=== PATIENT | female | born 1995 | race American Indian/Alaskan Native ===

== ENCOUNTER 2020-07-21 15:27 | Day surgery (SDC) | payer OTHER, MEDICAID ==
[2020-07-21] MEDS ORDERED: SODIUM CHLORIDE 0.9% 1000 ML 1,000 ML IV ONE (17:18)
--- NOTE | 2020-07-21 17:19 | Event Note ---
ED Screening Note Date of service: 07/21/20 Time: 17:17 ED Screening Note: This is a 25-year-old female presents to ED with vaginal bleeding status post medical on Monday of last week. Patient states that vaginal bleeding got worse 2 days ago. This initial assessment/diagnostic orders/clinical plan/treatment(s) is/are subject to change based on patients health status, clinical progression and re- assessment by fellow clinical providers in the ED. Further treatment and workup at subsequent clinical providers discretion. Patient/guardian urged not to elope from the ED as their condition may be serious if not clinically assessed and managed. Initial orders include: CBC, CMP, type and screen test, 1 L of fluids, residential monitor
--- NOTE | 2020-07-21 17:29 | Emergency Department Report ---
ED General Adult HPI - General Chief complaint: Vaginal Bleeding Stated complaint: BLOOD LOSS PUI?: No Time Seen by Provider: 07/21/20 17:28 Source: patient, RN notes reviewed Mode of arrival: Ambulatory Limitations: No Limitations - History of Present Illness Initial comments: The patient was evaluated in the emergency department for symptoms described in the history of present illness. He/she was evaluated in the context of the global COVID-19 pandemic, which necessitated consideration that the patient might be at risk for infection with the virus that causes COVID-19. Institutional protocols and algorithms that pertain to the evaluation of patients at risk for COVID-19 are in a state of rapid change based on informa tion released by regulatory bodies including the CDC and federal and state organizations. These policies and algorithms were followed during the patient's care in the emergency department. Please note that these policies, procedures and recommendations changed on a rapid basis. During the history and physical examination, I am chaperoned by nurse Arline Alcaraz The patient is a 25-year-old female. She is not known to me previously. She is 3, para 0, status post 1 surgical termination of , recently status post 1 medical . Patient reports that she was approximately 8 weeks with twins, confirmed via outpatient ultrasound, when she took "an pill" last week, approximately on Monday. She reports intermittent bleeding from Monday to , then reports bleeding stopped on Monday, then reports increasing bleeding on Monday. She reports bleeding more than 10 pads per day. She reports shortness of breath, dizziness, lightheadedness, with no physical pain, positive chills, and positive feeling "very pale." She reports that she went to her outpatient prepared foods team leader, who performed laboratory studies, and indicated that her hemoglobin went from 12-5, and she was thus referred to the emergency room. She reports her outpatient [employer] is the following: [facility] Negative for fever, negative for loss of taste, loss of smell, negative for chest pain, positive shortness of breath, no abdominal pain, no dysuria, no hematemesis or bright red blood per rectum. She has no scientology objections to receiving a blood transfusion, if necessary. -: Gradual, days(s) Consistency: constant Improves with: none Worsens with: none - Related Data Allergies Allergy/AdvReac Type Severity Reaction Status Date / Time No Known Allergies Allergy Unverified 07/21/20 17:12 ED Review of Systems ROS: Stated complaint: BLOOD LOSS Other details as noted in HPI Constitutional: chills, malaise, weakness. denies: fever Eyes: denies: eye discharge ENT: denies: epistaxis Respiratory: shortness of breath Cardiovascular: dyspnea on exertion. denies: chest pain Gastrointestinal: denies: abdominal pain, nausea, vomiting, hematemesis, melena, hematochezia Genitourinary: abnormal menses. denies: dysuria Musculoskeletal: denies: back pain Neurological: weakness Hematological/Lymphatic: denies: easy bleeding ED Physical Exam - General Limitations: No Limitations General appearance: alert, anxious - Head Head exam: Present: atraumatic, normocephalic - Eye Eye exam: Present: PERRL, EOMI, other (Bilateral conjunctiva are pale). Absent: nystagmus - ENT ENT exam: Present: normal exam, normal orophraynx, mucous membranes moist, normal external ear exam - Neck Neck exam: Present: normal inspection, full ROM. Absent: tenderness, meningismus - Respiratory Respiratory exam: Present: normal lung sounds bilaterally. Absent: respiratory distress, wheezes, rales, rhonchi, stridor, decreased breath sounds - Cardiovascular Cardiovascular Exam: Present: normal rhythm, tachycardia, normal heart sounds. Absent: irregular rhythm, systolic murmur, diastolic murmur, rubs, gallop - GI/Abdominal GI/Abdominal exam: Present: soft. Absent: distended, tenderness, guarding, rebound, rigid, pulsatile mass - Extremities Exam Extremities exam: Present: normal inspection, full ROM, other (2+ pulses noted in the bilateral upper and lower extremities. There is no palpable cord. ne gative Homans sign. Muscular compartments are soft. The pelvis is stable.). Absent: pedal edema, calf tenderness - Back Exam Back exam: Present: normal inspection, full ROM. Absent: tenderness, CVA tenderness (R), CVA tenderness (L), paraspinal tenderness, vertebral tenderness - Neurological Exam Neurological exam: Present: alert, normal gait, other (No facial droop. Tongue midline. Extraocular movements intact bilaterally. Facial sensation intact to light touch in V1, V2, V3 distribution bilaterally. 5 and a 5 strength in 4 extremities. Sensation intact to light touch in 4 extremities.). Absent: motor sensory deficit - Psychiatric Psychiatric exam: Present: anxious - Skin Skin exam: Present: warm, dry, intact, normal color. Absent: rash ED Course Vital Signs 07/21/20 15:33 Temperature 98.4 F Pulse Rate 159 H Respiratory 18 Rate Blood Pressure 112/56 O2 Sat by Pulse 100 Oximetry - Reevaluation(s) Reevaluation #1: 07/21/20 17:44 Differential diagnosis, including but not limited to: Symptomatic anemia, retained products of conception, hemorrhage Assessment and plan: 25-year-old female, status post ingestion of medical pill approximately 1 week ago, now with reported profuse bleeding, who appears very pale, quite tachycardic, with pale conjunctiva, but hemodynamically stable, and mentating appropriately. Place patient on cardiac cath lab technologist, obtain 2 large-bore IVs, start IV fluid resuscitation, obtain appropriate laboratory studies, transfuse 1 unit packed red blood cells to start, obtain stat obstetrics ultrasound, and then discussed with gynecology on-call. Have discussed this plan of care with the patient, who verbalized understanding, and is amenable to this plan of care. Reevaluation #2: 07/21/20 19:20 Patient feels improved. Heart rate 115 bpm. Ultrasound suggests retained products of conception. Obstetrics on-call was paged. - Consultations Consultation #1: 07/21/20 19:43 Discussed history, physical, pertinent laboratory studies and imaging studies with obstetrics on-call, Dr. Saint Sharp. She accepts the patient to her service, advises that patient will likely require operative intervention. Patient has not eaten since 1:00 PM. I have updated the patient on this plan of care, and she is amenable. Currently, heart rate 101 bpm, blood pressure 115/70. ED Medical Decision Making - Lab Data Result diagrams: 07/21/20 17:21 07/21/20 17:21 Vital Signs 07/21/20 15:33 Temperature 98.4 F Pulse Rate 159 H Respiratory 18 Rate Blood Pressure 112/56 O2 Sat by Pulse 100 Oximetry - Radiology Data Radiology results: report reviewed, image reviewed ULTRASOUND OBSTETRIC REASON FOR EXAM: s/p bill, now with profuse bleeding TECHNIQUE: Transabdominal and transvaginal ultrasound was performed to evaluate a first trimester . COMPARISON: None available. FINDINGS: FINDINGS: No IUP is visualized. MATERNAL FINDINGS: The uterus measures 9.3 x 5.7 x 7.5 cm. The endometrial stripe is heterogeneous and ma rkedly thickened, measuring 2.7 cm. There is significant Doppler flow in the region of the endometrial stripe. The right ovary measures 3.0 x 1.9 x 2.1 cm and demonstrates a 2.1 cm cystic structure, most consistent with a corpus luteum cyst. The left ovary measures 2.2 x 1.3 x 1.6 cm and demonstrates a normal sonographic appearance. Cul-de-sac: There is no free fluid. IMPRESSION: 1. No IUP visualized. 2. Heterogeneous and thickened endometrium with significant associated Doppler flow in the region of the endometrial cavity. Findings are concerning for incomplete with retained products of conception. Signer Name: Lam Velasquez MD Signed: 07/21/2020 6:57 PM Workstation Name: [id number] Critical Care Time: Yes Critical care time in (mins) excluding proc time.: 35 Critical care attestation.: If time is entered above; I have spent that time in minutes in the direct care of this critically ill patient, excluding procedure time. ED Disposition Clinical Impression: Anemia, Vaginal bleeding, Hypokalemia, Retained products of conception Disposition: DC-09 OP ADMIT IP TO THIS HOSP Is pt being admited?: Yes Does the pt Need Aspirin: No Condition: Serious Referrals: PRIMARY CARE, [Primary Care Provider] - 3-5 Days
[2020-07-21] MEDS ORDERED: SODIUM CHLORIDE 0.9% 500 ML 500 ML IV ONE (17:39)
[2020-07-21] MEDS ORDERED: LACTATED RINGERS 2,000 ML IV ONE (17:39)
[2020-07-21 17:57] LABS: Basophils # (Auto) 0.1 K/mm3 (0.0-0.1); Basophils % (Auto) 0.6 % (0.0-1.8); Eosinophils % (Auto) 0.2 % (0.0-4.3); Lymphocytes % (Auto) 24.1 % (13.4-35.0); Mean Corpuscular HGB Conc 33 % (30-34); Mean Corpuscular Volume 89 fl (79-97); Monocytes % (Auto) 5.9 % (0.0-7.3); Platelet Count 280 K/mm3 (140-440); Red Blood Count 2.07 M/mm3 (3.65-5.03); Red Cell Distribution Width 15.4 % (13.2-15.2)
[2020-07-21 18:09] LABS: INR 1.03 (0.87-1.13); Partial Thromboplastin Time 23.5 Sec. (24.2-36.6)
[2020-07-21 18:13] LABS: Blood Urea Nitrogen 9 mg/dL (7-17); Calcium 8.7 mg/dL (8.4-10.2); Hemolysis Index 7
[2020-07-21 18:14] LABS: BUN/Creatinine Ratio 15; Hematocrit 18.4 % (30.3-42.9)
[2020-07-21] MEDS ORDERED: POTASSIUM CHLORIDE ER 20 MEQ TAB PO ONE (18:17)
[2020-07-21] MEDS ORDERED: POTASSIUM CHLORIDE 10 MEQ 10 MEQ/100 ML BAG IV SCH (19:00)
--- NOTE | 2020-07-21 20:01 | Ultrasound Report ---
ULTRASOUND OBSTETRIC REASON FOR EXAM: s/p bill, now with profuse bleeding TECHNIQUE: Transabdominal and transvaginal ultrasound was performed to evaluate a first trimester pre gnancy. COMPARISON: None available. FINDINGS: FINDINGS: No IUP is visualized. MATERNAL FINDINGS: The uterus measures 9.3 x 5.7 x 7.5 cm. The endometrial stripe is heterogeneous and markedly thickene d, measuring 2.7 cm. There is significant Doppler flow in the region of the endometrial stripe. The right ovary measures 3.0 x 1.9 x 2.1 cm and demonstrates a 2.1 cm cystic structure, most consiste nt with a corpus luteum cyst. The left ovary measures 2.2 x 1.3 x 1.6 cm and demonstrates a normal sonographic appearance. Cul-de-sac: There is no free fluid. IMPRESSION: 1. No IUP visualized. 2. Heterogeneous and thickened endometrium with significant associated Doppler flow in the region of the endometrial cavity. Findings are concerning for incomplete with retained products of con ception. Signer Name: Lam Velasquez MD Signed: 07/21/2020 7:57 PM Workstation Name: [id number]
--- NOTE | 2020-07-21 20:38 | Anesthesia Consultation ---
Anesthesia Consult and Med Hx Date of service: 07/21/20 - Airway Anesthetic Teeth Evaluation: Poor (multiple loose lower incisors 2/2 periodonitis) ROM Head & Neck: Adequate Mental/Hyoid Distance: Adequate Mallampati Class: Class II Intubation Access Assessment: Probably Good - Pulmonary Exam CTA: Yes - Cardiac Exam Cardiac Exam: RRR - Pre-Operative Health Status ASA Pre-Surgery Classification: ASA2, Emergency Proposed Anesthetic Plan: General - Pulmonary Hx Smoking: Yes - Cardiovascular System Hx Hypertension: No - Central Nervous System CVA: No - Gastrointestinal Hx Gastroesophageal Reflux Disease: No - Endocrine Hx Renal Disease: No Hx Liver Disease: No Hx Insulin Dependent Diabetes: No Hx Non-Insulin Dependent Diabetes: No Hx Thyroid Disease: No - Hematic Hx Anemia: Yes (2/2 acute blood loss) - Other Systems Hx Obesity: Yes (BMI 30) - Additional Comments Anesthesia Medical History Comments: Patient presenting with vaginal bleeding and anemia s/p medical with evidence of retained POC on ultrasound. Initially normotensive/tachycardic on arrival but tachycardia has now improved. pRBCs and K+ ordered in ED. No prior GA or FHx anesthetic complications. Plan GA w/ standard ASA monitors. Will order addtional pRBCs on stand by.
--- NOTE | 2020-07-21 20:38 | Anesthesia Day of Surgery ---
Anesthesia Day of Surgery - Day of Surgery Patient Examined: Yes Patient H&P Reviewed: Yes Patient is NPO: Yes
[2020-07-21] MEDS ORDERED: ONDANSETRON 4 MG/2 ML INJ IV PRN (20:39)
[2020-07-21] MEDS ORDERED: fentaNYL 100 MCG/2 ML INJ IV PRN (20:39)
[2020-07-21] MEDS ORDERED: MEPERIDINE 25 MG/1 ML INJ IV PRN (20:39)
[2020-07-21] MEDS ORDERED: propofoL 200 MG/20 ML VIAL IV ONE ×2 (20:49→21:36)
[2020-07-21] MEDS ORDERED: fentaNYL 100 MCG/2 ML INJ ONE (20:49)
[2020-07-21] MEDS ORDERED: LIDOCAINE MPF (2%) 20 MG/1 ML VIAL 5 ML ONE (20:49)
[2020-07-21] MEDS ORDERED: MIDAZOLAM 2 MG/2 ML INJ ONE (20:50)
--- NOTE | 2020-07-21 20:58 | Short Stay Summary ---
Short Stay Documentation Date of service: 07/21/20 Narrative H&P: 25y/o status post a medical a week ago for a first trimester twin gestation. The patient reports having heavy vaginal bleeding. She was seen in the clinic with a significant drop in her hemoglobin from 12 to 6. She reports feeling fatigued. Pelvic ultrasound in the ED demonstrated findings of a thickened endometrium consistent with retained products. - History Principal diagnosis: Incomplete Past Medical History: No medical history Past Surgical History: Other ( termination) Social history: single - Allergies and Medications Current Medications: Allergies No Known Allergies Allergy (Unverified 07/21/20 17:12) Active Medications Fentanyl (Fentanyl 100 Mcg/2 Ml Inj) 50 mcg IV Q5MIN PRN PRN Reason: Pain , Severe (7-10) Stop: 07/22/20 20:38 Potassium Chloride (Kcl 10meq/100ml) 10 meq in 100 mls @ 100 mls/hr IV Q1H GRICEL Stop: 07/21/20 20:59 Lactated Ringer's (Lactated Ringers) 1,000 mls @ 150 mls/hr IV DIRECT GRICEL Meperidine HCl (Meperidine 25 Mg/1 Ml Inj) 25 mg IV ONCE PRN PRN Reason: Shivering Ondansetron HCl (Ondansetron 4 Mg/2 Ml Inj) 4 mg IV ONCE PRN PRN Reason: Nausea And Vomiting - Physical exam General appearance: no acute distress, other (pallor) Integumentary: no rash HEENT: Atraumatic Lungs: Clear to auscultation Breasts: deferred Gastrointestinal: normal Female Genitourinary: deferred Rectal Exam: deferred - Brief post op/procedure progress note Date of procedure: 07/21/20 Pre-op diagnosis: Incomplete Post-op diagnosis: same Procedure: Suction dilatation and curettage Anesthesia: JULIUS Surgeon: VIC WHELAN Estimated blood loss: 50-100ml Pathology: list (Products of conception) Specimen disposition: to lab Condition: stable - Hospital course Hospital course: The patient was admitted through the emergency department after having a significant anemia secondary to heavy vaginal bleeding. The patient has a history of a medical termination. Pelvic ultrasound demonstrated findings of retained products of conception. The patient was transfused packed red blood cells. The patient was taken for a suction dilatation and curettage. See operative note for details of surgery. Her postoperative course was uneventful. - Disposition Condition at discharge: Good Disposition: DC-01 TO HOME OR SELFCARE - Discharge Diagnoses (1) Incomplete Status: Acute (2) Retained products of conception Status: Acute (3) Vaginal bleeding Status: Acute Short Stay Discharge Plan Activity: other (Pelvic rest for 1 week) Diet: regular Additional Instructions: Follow-up with Dr. Whelan in 2 weeks [place] [facility] [address] [place] [address]. [place] [address] Prescriptions: Ibuprofen [Motrin] 800 mg PO Q8HR PRN #30 tablet PRN Reason: Pain , Severe (7-10) HYDROcodone/APAP 5-325 [[place] 5/325] 1 each PO Q6HR PRN #20 tablet PRN Reason: Pain
[2020-07-21] MEDS ORDERED: LACTATED RINGERS 1,000 ML IV SCH (21:00)
[2020-07-21] MEDS ORDERED: ONDANSETRON 4 MG/2 ML INJ ONE (21:50)
[2020-07-21] MEDS ORDERED: dexAMETHasone 20 MG/5 ML VIAL ONE (21:50)
[2020-07-21] MEDS ORDERED: METHYLERGONOVINE MALEATE 0.2 MG/ML VIAL IM ONE (21:54)
[2020-07-21] MEDS ORDERED: LACTATED RINGERS 1,000 ML ONE (22:02)
--- NOTE | 2020-07-21 22:08 | Operative Report ---
Operative Report Operative Report: Date of surgery: July 21, 2020 Preoperative diagnosis: Incomplete Postoperative diagnosis: Same as above Procedure: Suction dilatation and curettage Surgeon: Tonya Mirza M.D. Anesthesia: Gen. endotracheal anesthesia Estimated blood loss: 100 Milliliters Findings: Retained products of conception Indication: 25-year-old -0-2-1 status post a medical for first trimester . The patient had findings of retained products of conception and excessive vaginal bleeding requiring transfusion of blood products. Procedure: The patient was taken to the operating room and given general endotracheal anesthesia without complication. The patient is prepped and draped in a normal sterile fashion. A bivalve speculum was placed in the patient's vagina and a single-tooth tenaculums placed on the anterior lip of the cervix. The uterine cavity was then sounded. The cervical os was then dilated with graduated dilators. A number 10 Tajik curved cannula was placed to suction and found to be adequate. The cannula was then gently inserted into the dilated c ervical os. Evacuation of the uterine contents were performed. Sharp curettage and endometrial surface was performed until cry was achieved. The cannula was then gently reinserted into the uterine cavity to evacuate any additional contents. After removal of the cannula there was no evidence of any active bleeding. The vaginal instruments were then removed atraumatically. The patient was then successfully extubated and taken to the recovery room in stable condition. All sponge laps and needle counts were correct x2. Pathology consisted of products of conception.
[2020-07-21] MEDS ORDERED: HYDROcodone/ACETAMINOPHEN 5-325 MG TAB PO PRN (22:22)
[2020-07-21] MEDS ORDERED: KETOROLAC 30 MG/1 ML INJ IV PRN (22:22)
[2020-07-21 23:10] VITALS: BP 118/44
--- NOTE | 2020-07-22 09:45 | Post Anesthesia Evaluation ---
- Post Anesthesia Evaluation Patient Participated: Yes Airway Patent: Yes Stable Respiratory Function: Yes Nausea/Vomiting: No Temp > 96.8F: Yes Pain Manageable: Yes Adequeate Hydration: Yes Anesthesia Complications: No
== END 2020-07-21 22:06 | disposition home or self-care (01) ==
LOC: OR 15:27 → ED 15:27 → OR 22:06
PROVIDERS: ATTEND Emergency Medicine
DX: D64.9 Anemia, unspecified (principal); N93.9 Abnormal uterine and vaginal bleeding, unspecified; E87.6 Hypokalemia
CPT/HCPCS: 36415; 36430; 59812; 76801; 80048; 83735; 84702; 84703; 85025; 85610; 85730; 86850; 86900; 86901; 86920; 88305; 96361; 96365; 99284; J1100; J2210; J2250; J2405; J2704; J3010; J3480; J7120; P9016